=== PATIENT | male | born 1955 | race Caucasian/White ===

== ENCOUNTER 2017-12-16 11:27 | Emergency (ER) | payer OTHER ==
--- NOTE | 2017-12-16 12:20 | EDM.PDOC ---
ED HPI GENERAL MEDICAL PROBLEM - General Chief Complaint: General Stated Complaint: HAD SURGERY AND LOSING MOTION IN L ARM Time Seen by Provider: 12/16/17 11:35 Source of Information: Reports: Patient History Limitations: Reports: No Limitations - History of Present Illness INITIAL COMMENTS - FREE TEXT/NARRATIVE: Pt. presents to ER with complaints of motor weakness to L upper extremity, paresthesia to lateral aspect of arm, and increased pain to lower c-spine. Pt. states that he underwent cervical spinal fusion (C3-C6) on 12-10-17 at [facility] by Dr. Bell. He noticed the new symptoms yesterday. at discharge, he was able to actively vertically and laterally lift both arms above his head. He had a follow-up call for [place] who told patient to come to "closest ER". Denies any new trauma to the area. Onset: Today Location: Reports: Upper Extremity, Left Associated Symptoms: Reports: Weakness Lower Posterior Neck Pain Score (Numeric/FACES): 3 - Related Data Home Meds: Home Meds Aspirin 81 mg PO DAILY 12/16/17 [History] Baclofen 5 mg PO TID PRN 12/16/17 [History] Desonide 1 applic TOP BID PRN 12/16/17 [History] EPINEPHrine [Epipen] 0.3 mg IM ASDIRECTED PRN 12/16/17 [History] Metoprolol Succinate [Toprol Xl] 75 mg PO DAILY 12/16/17 [History] Ranitidine [Zantac] 150 mg PO DAILY 12/16/17 [History] Terbinafine HCl [Lamisil At] 1 applic TOP BID PRN 12/16/17 [History] amLODIPine Besylate [Amlodipine Besylate] 10 mg PO DAILY 12/16/17 [History] traMADol HCl [Tramadol HCl] 100 mg PO Q4H PRN 12/16/17 [History] ED ROS GENERAL - Review of Systems Review Of Systems: See Below Constitutional: Reports: No Symptoms Musculoskeletal: Reports: Neck Pain, Other (see HPI) Neurological: Reports: No Symptoms, Headache, Paresthesia (lateral upper arm), Weakness (L upper extremity), Change in Speech Psychiatric: Reports: No Symptoms ED EXAM, GENERAL - Physical Exam Exam: See Below Exam Limited By: No Limitations General Appearance: Alert, WD/WN, No Apparent Distress Extremities: Normal Inspection, Normal Range of Motion, Non-Tender, Normal Capillary Refill, No Pedal Edema Neurological: Alert, Oriented, CN II-XII Intact, Normal Cognition, Normal Gait, Normal Reflexes (2+ in upper extremities), Sensory/Motor Deficit (unable to lift arm past 90 degrees, decreased sensation to lateral upper arm. 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
== END 2017-12-16 12:26 | disposition short-term general hospital (02) ==
LOC: VM.ED 11:27
DX: R29.898 Other symptoms and signs involving the musculoskeletal system (principal); Z98.1 Arthrodesis status; Z79.82 Long term (current) use of aspirin
CPT/HCPCS: 99285

== ENCOUNTER 2018-12-12 16:25 | Emergency (ER) | payer OTHER ==
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
== END 2018-12-12 17:15 | disposition home or self-care (01) ==
LOC: VM.ED 16:25
DX: T63.441A Toxic effect of venom of bees, accidental (unintentional), initial encounter (principal); T44.5X5A Adverse effect of predominantly beta-adrenoreceptor agonists, initial encounter; I25.2 Old myocardial infarction; K21.9 Gastro-esophageal reflux disease without esophagitis; I10 Essential (primary) hypertension; E78.00 Pure hypercholesterolemia, unspecified; Z91.030 Bee allergy status; Z88.8 Allergy status to other drugs, medicaments and biological substances; Z79.82 Long term (current) use of aspirin; Z79.899 Other long term (current) drug therapy
CPT/HCPCS: 99283